=== PATIENT | female | born 1940 | race Caucasian/White ===

== ENCOUNTER 2020-06-29 02:26 | Outpatient (CLI) | payer MEDICARE, SELFPAY ==
[2020-06-29 19:32] LABS: SARS-CoV-2 RNA PCR Negative
== END 2020-06-29 02:27 | disposition home or self-care (01) ==
LOC: ANHCOVIDDT 02:27
PROVIDERS: PCP Internal Medicine; Visit Provider Surgery Plastic and Reconstructive Surgery
DX: Z01.812 Encounter for preprocedural laboratory examination (principal); Z20.822 Contact with and (suspected) exposure to COVID-19
CPT/HCPCS: C9803; U0003

== ENCOUNTER 2020-07-02 00:16 | Day surgery (SDC) | payer MEDICARE, SELFPAY ==
[2020-06-25 15:03] VITALS: BMI 22.3
[2020-07-02 11:59] VITALS: BP 132/50; PULSE 66; RESP 14; TEMP 36.1; O2SAT 96
[2020-07-02] MEDS: LACTATED RINGERS 1,000 ML 30 ML IV CONT (12:34)
--- NOTE | 2020-07-02 12:57 | WPDHPUPDATE1 ---
History and Physical Update Update Date/Time: 07/02/20 12:57 History and Physical has been reviewed, including an updated exam of the patient. There are NO changes in the patient's condition. Risks, benefits, and alternatives have been discussed and questions answered. Patient agrees to proceed with procedure.
--- NOTE | 2020-07-02 13:06 | WPDANESEPPF ---
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 Patient Data Age: 79 Gender: F Height: 5 ft 4 in Weight: 59 kg Allergies Allergy/AdvReac Type Severity Reaction Status Date / Time adhesive tape Allergy Mild Itching Verified 07/02/20 12:31 Penicillins Allergy Mild Anaphylaxis Unverified 07/02/20 12:31 Sulfa (Sulfonamide Allergy Mild Rash Unverified 07/02/20 12:31 Antibiotics) tetracycline Allergy Mild Rash Unverified 07/02/20 12:31 dextrose Allergy Unknown LETHARGIC Verified 07/02/20 12:31 FEELING levofloxacin [From Levaquin] AdvReac Other Verified 07/02/20 12:31 meperidine [From Demerol] AdvReac Nausea and Verified 07/02/20 12:31 Vomiting Home Medications Medication Instructions Recorded Confirmed Type Magnesium 200 mg PO HS 06/24/20 07/02/20 History Vitamin B-12 500 mg PO EVERY OTHER DAY 06/24/20 07/02/20 History ascorbic acid (vitamin C) 500 mg 500 mg PO DAILY 06/24/20 07/02/20 History tablet cholecalciferol (vitamin D3) 50 50 mcg PO DAILY 06/24/20 07/02/20 History mcg (2,000 unit) capsule ondansetron HCl 4 mg tablet 4 mg PO Q6H PRN #30 tablet 06/24/20 07/02/20 Rx potassium gluconate 600 mg (99 mg) 1,200 mg PO BID 06/24/20 07/02/20 History tablet albuterol 90 mcg INHALATION PRN PRN 06/25/20 07/02/20 History thyroid (pork) [[employer] Thyroid] 60 mg PO DAILY 06/25/20 07/02/20 History Patient hx anesthesia problems: none Family hx anesthesia problems: none PMFSH Past Medical History Medical History History of candidiasis History of Mel-Espinal virus infection History of hiatal hernia 11/2002 History of rheumatic fever Surgical History Surgical History History of back surgery lower fusion 06/2000 History of cholecystectomy Family History Family History Mother Cerebrovascular accident Family history of eczema Patient's mother is in good health Family history of alcoholism Father Malignant neoplasm of prostate Sibling Family history of lymphoma Family history of obesity Depression Asthma Patient's sister is in good health Family history of allergic disorder Family history of alcoholism Family history of diabetes mellitus in first degree relative Family history of thyroid disease Other Family history of lung cancer Social History Social History Smoking status: Former smoker Tobacco type: cigarettes Smoking end date: 06/21/91 Additional smoking assessment comments: STATES 3PK/DAY/20-30YRS QUIT 1989 Alcohol intake: current Drinks per week: 2 Substance use: never Substance use type: does not use Living arrangements: alone Spiritual care concerns: No Anes - Eval Final PreProcedure Day of Procedure 07/02/20 13:06 Patient weight: normal Heart: regular rate and rhythm Lungs: clear to auscultation Airway: Mallampati scale class II Neurological: alert and oriented Last oral intake: >/= 8 hours Emergent: no Anesthetic plan: proceed Anesthesia type and monitoring: general LMA and standard monitoring Informed Consent: The patient's anesthetic plan and its attendant risks and benefits were discussed with the patient/family/POA. Questions were solicited and answers provided to the satisfaction of the patient/family/POA.
--- NOTE | 2020-07-02 13:24 | PM.PROC ---
Procedure Note - Detailed Date of procedure: 07/02/20 Pre-op diagnosis: capsular contracture bilat breasts Post-op diagnosis: same Procedure performed: 1. Right removal breast implant material 2. Left removal intact breast implant 2. Bilateral capsulectomy Description of procedure: Risks, benefits, alternatives were discussed in extensive detail. I want her to be very realistic about the risks involved as well as expectations. Made sure answered all of her questions to her satisfaction. Consent was obtained. She was taken to the operating room placed supine on the operating room table. Anesthesia was provided by anesthesiology she was prepped and draped in a standard sterile fashion. Fifteen blade used to make an incision around the previous scar. Dissection was continued down to the capsule was identified. I removed as much of the capsules I could safely. Implants were removed. Right ruptured, left intact. I copiously irrigated with 3 L of bacitracin containing saline on TUR tubing. I changed to TUR tubing and my gloves and then irrigated again with 3 L of saline solution. Bilateral 15 Justin drains were placed. These were brought out near the axilla and sutured into place with 3-0 nylon. Closed the incisions using 3-0 Vicryl followed by 3-0 Monocryl in a running subcuticular 4-0 Monocryl and tissue glue. She was awoke and taken to the PACU without difficulty. All instrument sponge counts were correct at the end of the case. Anesthesia: GLMA Surgeon: Ramos Crespo MD Estimated blood loss (mL): 20 Drains: Yes (Bilateral Justin) Packing: No Pathology: yes (Bilateral breast capsules) Complications: No immediate complications Condition: stable Disposition: PACU Findings: Right implant ruptured Left implant intact No seroma No worrisome features of capsule
[2020-07-02] MEDS: CLINDAMYCIN 900 MG/D5W 50 ML 900 MG/50 ML PIGGYBACK 50 MG IVPB (14:05)
[2020-07-02] MEDS: LIDO 1%/EPINEPHRINE 1:100,000 50 ML VIAL 40 ML INFILTRATE (14:57)
[2020-07-02 15:30] VITALS: BP 125/69; PULSE 81; RESP 16; O2SAT 96
[2020-07-02 16:00] VITALS: BP 111/59; PULSE 66; RESP 20
[2020-07-02] MEDS: IBUPROFEN 400 MG TABLET PO (16:15)
[2020-07-02 16:30] VITALS: BP 111/64; PULSE 65; RESP 20
[2020-07-02 16:50] VITALS: BP 110/60; PULSE 60; RESP 20
== END 2020-07-02 17:00 | disposition home or self-care (01) ==
PROVIDERS: PCP Internal Medicine; Visit Provider Surgery Plastic and Reconstructive Surgery
PROC: (CPT 19342; principal; 2020-07-02 13:45)
DX: T85.44XA Capsular contracture of breast implant, initial encounter (principal); T85.41XA Breakdown (mechanical) of breast prosthesis and implant, initial encounter; Y83.8 Other surgical procedures as the cause of abnormal reaction of the patient, or of later complication, without mention of misadventure at the time of the procedure; Z87.891 Personal history of nicotine dependence
CPT/HCPCS: 19371; 88304; A9270; C9803; J2405; J2704; J3010; J7120; U0003